=== PATIENT | female | born 1995 | race Hispanic/Latino ===

== ENCOUNTER 2017-04-10 16:19 | Outpatient (CLI) | payer MEDICAID ==
[2017-04-10 17:44] VITALS: BP 103/61
[2017-04-10 17:52] LABS: Amorphous Crystals,Urine Few; Bilirubin,Urine NEG (Negative); Blood,Urine NEG (Negative); Color,Urine Yellow (Yellow); Mucus,Urine 1+ /HPF; Nitrite,Urine NEG (Negative); Protein,Urine <15 mg/dL mg/dL (Negative); Urobilinogen,Urine < 2.0 mg/dL (<2.0)
[2017-04-10 17:55] LABS: Amphetamine Screen,Urine PRESUMPTIVE NEGATIVE; Benzodiazepines Screen,Urine PRESUMPTIVE NEGATIVE; Cocaine Screen,Urine PRESUMPTIVE NEGATIVE; Methadone Screen,Urine PRESUMPTIVE NEGATIVE; Opiate Screen,Urine PRESUMPTIVE NEGATIVE
[2017-04-10 18:12] LABS: Cannabinoid Screen,Urine PRESUMPTIVE POSITIVE
== END 2017-04-10 18:05 | disposition home or self-care (01) ==
LOC: TRG 16:19
PROVIDERS: ATTEND Obstetrics & Gynecology
DX: O99.333 Smoking (tobacco) complicating pregnancy, third trimester (principal); F17.200 Nicotine dependence, unspecified, uncomplicated; O47.02 False labor before 37 completed weeks of gestation, second trimester; Z3A.23 23 weeks gestation of pregnancy
CPT/HCPCS: 59025; 80307; 81001

== ENCOUNTER 2017-07-28 04:48 | Outpatient (CLI) | payer MEDICAID ==
[2017-07-28 07:41] VITALS: BP 141/85
== END 2017-07-28 07:50 | disposition home or self-care (01) ==
LOC: TRG 04:48
PROVIDERS: ATTEND Obstetrics & Gynecology
DX: O26.893 Other specified pregnancy related conditions, third trimester (principal); O42.913 Preterm premature rupture of membranes, unspecified as to length of time between rupture and onset of labor, third trimester; R10.9 Unspecified abdominal pain; Z3A.39 39 weeks gestation of pregnancy
CPT/HCPCS: 59025

== ENCOUNTER 2017-07-29 03:13 | Inpatient (IN) | payer MEDICAID ==
[2017-07-29 04:36] LABS: Hematocrit 33.6 % (30.3-42.9); Hemoglobin 11.5 gm/dl (10.1-14.3); Mean Corpuscular HGB Conc 34 % (30-34); Mean Corpuscular Hemoglobin 29 pg (28-32); Mean Corpuscular Volume 84 fl (79-97); Platelet Count 189 K/mm3 (140-440); Red Cell Distribution Width 15.4 % (13.2-15.2)
[2017-07-29] MEDS: LACTATED RINGERS 1,000 ML IV SCH ×3 (06:10→09:03)
[2017-07-29] MEDS ORDERED: SUBLIMAZE IV NR (07:42)
[2017-07-29] MEDS ORDERED: ePHEDrine SULFATE ONE (08:56)
[2017-07-29] MEDS ORDERED: NARCAN 2 MG/2 ML IV PRN (09:47)
[2017-07-29] MEDS ORDERED: ePHEDrine SULFATE IV PRN ×2 (09:47→11:47)
--- NOTE | 2017-07-29 09:47 | Anesthesia Consultation ---
Anesthesia Consult and Med Hx Date of service: 07/29/17 - Airway Anesthetic Teeth Evaluation: Good ROM Head & Neck: Adequate Mental/Hyoid Distance: Adequate Mallampati Class: Class II Intubation Access Assessment: Probably Good - Pre-Operative Health Status ASA Pre-Surgery Classification: ASA2 Proposed Anesthetic Plan: Epidural, Spinal - Pulmonary Hx Asthma: No COPD: No Hx Pneumonia: No - Cardiovascular System Hx Hypertension: No - Central Nervous System Hx Seizures: No Hx Psychiatric Problems: No - Endocrine Hx Renal Disease: No Hx End Stage Renal Disease: No Hx Hypothyroidism: No Hx Hyperthyroidism: No - Hematic Hx Anemia: No Hx Sickle Cell Disease: No - Other Systems Hx Alcohol Use: No
[2017-07-29] MEDS ORDERED: fentaNYL-BUPIV 2 MCG/ML-0.125% 200 MCG/100 ML BAG EPIDURAL SCH (10:00)
[2017-07-29] MEDS ORDERED: BRETHINE SUB-Q PRN (11:47)
[2017-07-29] MEDS ORDERED: BRETHINE IVP PRN (11:47)
[2017-07-29] MEDS ORDERED: MINERAL OIL PO PRN (11:47)
[2017-07-29] MEDS ORDERED: XYLOCAINE 2% INFILTRATI ONE (11:47)
[2017-07-29] MEDS ORDERED: ZOFRAN IV PRN ×2 (11:47→18:22)
[2017-07-29] MEDS ORDERED: LACTATED RINGERS 1,000 ML IV SCH (12:00)
[2017-07-29] MEDS ORDERED: PITOCin/NS 30 UNIT/500ML 30 UNITS/500 ML BAG IV SCH ×2 (12:00)
[2017-07-29] MEDS ORDERED: PITOCin/NS 20 UNIT/1000ML DRIP 20,000 MILLIUNITS/1,000 ML BAG IV ONE ×2 (13:52→16:41)
--- NOTE | 2017-07-29 14:56 | History and Physical Report ---
History of Present Illness Date of examination: 07/29/17 Date of admission: 07/29/17 03:39 Chief complaint: My water broke History of present illness: Patient is a 22-year-old 1 para 0 who presents at 38-6/7 weeks with complaint of rupture of membranes. She has had uncomplicated course. She is GBS negative. Past History Past Medical History: no pertinent history Past Surgical History: no surgical history Family/Genetic History: none Social history: single - Obstetrical History Expected Date of Delivery: 08/08/17 Actual Gestation: 38 Week(s) 5 Day(s) : 1 Medications and Allergies Allergies Allergy/AdvReac Type Severity Reaction Status Date / Time No Known Allergies Allergy Unverified 04/10/17 16:24 Home Medications Medication Instructions Recorded Confirmed Last Taken Type No Known Home Medications [No 04/10/17 07/29/17 Unknown History Reported Home Medications] Active Meds: Active Medications Ephedrine Sulfate (Ephedrine Sulfate) 10 mg IV Q2M PRN PRN Reason: Hypotension Ephedrine Sulfate (Ephedrine Sulfate) 10 mg IV Q2M PRN PRN Reason: Hypotension Fentanyl/Bupivacaine/Sodium Chlor (Fentanyl-Bupiv 2 Mcg/Ml-0.125%) 200 mcg in 100 mls @ 12 mls/hr EPIDURAL TITR SHAYNA; Protocol Last Admin: 07/29/17 10:39 Dose: 12 mls/hr Lactated Ringer's (Lactated Ringers) 1,000 mls @ 125 mls/hr IV DIRECT SHAYNA Oxytocin/Sodium Chloride (Pitocin/Ns 30 Unit/500ml) 30 units in 500 mls @ 1 mls /hr IV TITR SHAYNA; Protocol Oxytocin/Sodium Chloride (Pitocin/Ns 30 Unit/500ml) 30 units in 500 mls @ 4 mls /hr IV TITR SHAYNA; Protocol Mineral Oil (Mineral Oil) 30 ml PO QHS PRN PRN Reason: Constipation Naloxone HCl (Narcan 2 Mg/2 Ml) 0.2 mg IV Q5M PRN PRN Reason: Respiratory sedation Ondansetron HCl (Zofran) 4 mg IV Q8H PRN PRN Reason: Nausea And Vomiting Terbutaline Sulfate (Brethine) 0.25 mg SUB-Q ONCE PRN PRN Reason: Hyperstimulation/Hypertonicity Terbutaline Sulfate (Brethine) 0.25 mg IVP ONCE PRN PRN Reason: Hyperstimulation/Hypertonicity Review of Systems All systems: negative Genitourinary: leakage of fluid, contractions - Vital Signs Vital signs: Vital Signs Pulse BP 90 132/72 07/29/17 03:50 07/29/17 03:50 Temp Pulse Resp BP Pulse Ox 97.7 F 95 H 18 130/78 95 07/29/17 07:28 07/29/17 09:50 07/29/17 07:28 07/29/17 09:50 07/29/17 09:50 - Physical Exam Breasts: Cardiovascular: Regular rate, Normal S1, Normal S2 Abdomen: Positive: normal appearance, soft, normal bowel sounds. Negative: distention, tenderness Genitourinary (Female): Positive: normal external genitalia, normal perenium Vulva: both: normal Vagina: Positive: normal moisture. Negative: discharge Cervix: Negative: lesion, discharge Uterus: Positive: normal size, normal contour Adnexa: both: normal Anus/Rectum: Positive: normal perianal skin, heme negative. Negative: rectal mass, hemorrhoids Extremities: Deep Tendon Reflex Grade: Normal +2 - Obstetrical FHR: auscultation normal Cervical Dilatation: 3 Cervical Effacement Percentage: 90 Uterine Contraction Pattern: Regular Uterine Contraction Intensity: Moderate Results Result Diagrams: 07/30/17 06:11 Abnormal lab results 07/29/17 Range/Units 04:00 RDW 15.4 H (13.2-15.2) % All other labs normal. Assessment and Plan IUP at 38.4 with rupture of membranes in active labor. Will admit for delivery. May have epidural when ready. Anticipate .
--- NOTE | 2017-07-29 14:57 | Procedure Note ---
OB Delivery Note - Delivery Date of Delivery: 07/29/17 Surgeon: SHAHLA AMBRIZ Estimated blood loss: 200cc - Vaginal Delivery presentation: vertex Delivery position: OA Intrapartum events: PROM->1hr before delivery Delivery induction: none Delivery monitor: external FHT, external uterine Route of delivery: Delivery placenta: spontaneous Delivery cord: 3 umbilical vessels Episiotomy: none Delivery laceration: 2nd degree Delivery comments: Viable female delivered over intact perineum with Apgars 8 and 9. Mouth was suctioned on the field the infant was placed on the maternal abdomen. Cord was clamped and cut after pulsating was completed. Infant weight was 7 lbs. 6 oz. The placenta was delivered spontaneously and intact with three- vessel cord. The second-degree laceration was repaired with 2-0 Vicryl. There was full hemostasis. The patient tolerated the procedure well. - Infant A at 1 minute: 8 at 5 minutes: 9 Infant Gender: Female (7 pounds 6 ounces)
[2017-07-29] MEDS ORDERED: LANSINOH TP PRN (18:22)
[2017-07-29] MEDS ORDERED: DULCOLAX PR PRN (18:22)
[2017-07-29] MEDS ORDERED: MILK OF MAGNESIA PO PRN (18:22)
[2017-07-29] MEDS ORDERED: TYLENOL PO PRN (18:22)
[2017-07-29] MEDS ORDERED: BENADRYL PO PRN (18:22)
[2017-07-29] MEDS ORDERED: SODIUM CHLORIDE FLUSH SYRINGE 10 ML IV NR (18:22)
[2017-07-29] MEDS ORDERED: PHENERGAN PR PRN (18:22)
[2017-07-29] MEDS ORDERED: PHENERGAN PO PRN (18:22)
[2017-07-29] MEDS: TUCKS PAD TP PRN (20:45)
[2017-07-29] MEDS: MOTRIN PO SCH (20:45)
[2017-07-30] MEDS: MOTRIN PO SCH ×3 (03:34→17:18)
[2017-07-30] MEDS: NORCO 5/325 PO PRN ×3 (03:35→17:19)
[2017-07-30] MEDS: COLACE PO SCH ×3 (05:56→22:25)
[2017-07-30] MEDS ORDERED: BOOSTRIX IM ONE (06:00)
[2017-07-30 06:24] LABS: Hematocrit 26.9 % (30.3-42.9); Hemoglobin 8.8 gm/dl (10.1-14.3)
[2017-07-30] MEDS: TUCKS PAD TP PRN (08:38)
[2017-07-30] MEDS ORDERED: PRENATAL VITAMIN PO SCH (10:00)
--- NOTE | 2017-07-30 11:17 | Progress Note ---
Assessment and Plan PPD 1 s/p . doing well. continue routine post care. Plan for discharge on tomorrow Subjective - Subjective Date of service: 07/30/17 Interval history: Patient is a 22-year-old 1 para 0 who presents at 38-6/7 weeks with complaint of rupture of membranes. She has had uncomplicated course. She is GBS negative. Patient reports: appetite normal, voiding normally, pain well controlled, ambulating normally : doing well Objective - Vital Signs Latest vital signs: Vital Signs Temp Pulse Resp BP BP Pulse Ox 07/30/17 08:18 97.8 F 88 18 135/85 98 07/30/17 04:15 98.7 F 72 16 103/64 07/30/17 00:30 98.7 F 66 18 131/78 07/29/17 20:00 98.7 F 77 16 101/72 07/29/17 17:09 99.7 F H 113 H 20 127/84 98 07/29/17 17:00 99.6 F 113 H 18 127/84 98 Intake and Output 07/29/17 07/30/17 07/30/17 22:59 06:59 14:59 Intake Total 400 300 Output Total 600 1400 Balance -200 -1100 Intake: IV 400 Right Hand 400 Intake, Free Water 300 Output: Urine 600 1400 Void 600 1400 Other: Total, Output Amount 600 600 # Voids Void 1 1 - Exam Breasts: Present: deferred Cardiovascular: Present: Regular rate, Normal S1, Normal S2 Lungs: Present: Clear to auscultation, Normal air movement Abdomen: Present: normal appearance, soft, normal bowel sounds Uterus: Present: normal, fundal height below umbilicus Deep Tendon Reflex Grade: Normal +2 - Labs Labs: Abnormal lab results 07/30/17 Range/Units 06:11 Hgb 8.8 L (10.1-14.3) gm/dl Hct 26.9 L D (30.3-42.9) %
--- NOTE | 2017-07-30 11:19 | Discharge Summary ---
Providers - Providers Date of Admission: 07/29/17 03:39 Date of discharge: 07/31/17 Attending physician: SHAHLA AMBRIZ Primary care physician: SHAHLA AMBRIZ Hospitalization Reason for admission: active labor, rupture of membranes Delivery: Episiotomy: none Laceration: 2nd degree Other procedures: none complications: none Discharge diagnosis: IUP at term delivered [place] baby: female Hospital course: unremarkable Condition at discharge: Good Disposition: DC-01 TO HOME OR SELFCARE Plan - Discharge Medications Prescriptions: HYDROcodone/APAP 5-325 [[place] 5-325 mg TAB] 2 each PO Q6H PRN #30 tablet PRN Reason: Pain, Moderate (4-6) Ibuprofen [Motrin] 800 mg PO Q8HR #30 tablet - Provider Discharge Summary Activity: routine, no sex for 6 weeks, no heavy lifting 4 weeks, no strenuous exercise Diet: routine Instructions: routine Additional instructions: [] Smoking cessation referral if applicable(refer to patient education folder for contact #) [] Refer to [facility]'s [facility] Booklet Call your doctor immediately for: * Fever > 100.5 * Heavy vaginal bleeding ( >1 pad per hour) * Severe persistent headache * Shortness of breath * Reddened, hot, painful area to leg or breast * Drainage or odor from incision. * Keep incision clean and dry at all times and follow doctor's instructions regarding bathing/showering - Follow up plan Follow up: SHAHLA AMBRIZ MD [Primary Care Provider] - 6 Weeks
[2017-07-30] MEDS ORDERED: DERMOPLAST TP PRN (21:59)
[2017-07-31] MEDS: MOTRIN PO SCH ×3 (00:28→15:01)
[2017-07-31] MEDS: NORCO 5/325 PO PRN ×2 (00:31→08:07)
[2017-07-31] MEDS: TUCKS PAD TP PRN (08:56)
[2017-07-31 17:38] VITALS: BP 123/73
== END 2017-07-31 15:50 | disposition home or self-care (01) | DRG 775 ==
LOC: TRG 03:13 → LD 03:39 → OB 17:22
PROVIDERS: ADMIT Obstetrics & Gynecology; ATTEND Obstetrics & Gynecology
PROC: 10E0XZZ Delivery of Products of Conception, External Approach (ICD-10-PCS; principal; 2017-07-29)
PROC: 0KQM0ZZ Repair Perineum Muscle, Open Approach (ICD-10-PCS; 2017-07-29)
DX: O42.92 Full-term premature rupture of membranes, unspecified as to length of time between rupture and onset of labor (principal); Z3A.38 38 weeks gestation of pregnancy; Z37.0 Single live birth; O70.1 Second degree perineal laceration during delivery
CPT/HCPCS: 36415; 85014; 85018; 85027; 86592; 86850; 86900; 86901; 90471; 90715; A6250; J2590; J3010; J7120